=== PATIENT | female | born 1995 | race Hispanic/Latino ===

== ENCOUNTER 2020-07-09 00:13 | Emergency (ER) | payer MEDICARE ==
[2020-07-09 01:15] VITALS: BP 108/63
[2020-07-09] MEDS ORDERED: ONDANSETRON 4 MG/2 ML INJ IV ONE (02:33)
[2020-07-09] MEDS ORDERED: KETOROLAC 30 MG/1 ML INJ IV ONE (02:33)
[2020-07-09] MEDS ORDERED: dexAMETHasone 20 MG/5 ML VIAL IV ONE (02:33)
[2020-07-09 03:44] LABS: Alanine Aminotransferase 10 units/L (7-56); Albumin 4.6 g/dL (3.9-5); BUN/Creatinine Ratio 16; Blood Urea Nitrogen 13 mg/dL (7-17); Calcium 9.6 mg/dL (8.4-10.2); Hemolysis Index 11
[2020-07-09] MEDS ORDERED: cefTRIAXone/NS 1 GM/50 ML 1 GM/50 ML BAG IV ONE (03:56)
[2020-07-09 04:02] LABS: Basophils # (Auto) 0.1 K/mm3 (0.0-0.1); Basophils % (Auto) 0.6 % (0.0-1.8); Eosinophils # (Auto) 1.1 K/mm3 (0.0-0.4); Eosinophils % (Auto) 12.5 % (0.0-4.3); Hematocrit 43.5 % (30.3-42.9); Hemoglobin 15.1 gm/dl (10.1-14.3); Mean Corpuscular HGB Conc 35 % (30-34); Mean Corpuscular Volume 96 fl (79-97); Monocytes # (Auto) 0.4 K/mm3 (0.0-0.8); Monocytes % (Auto) 4.8 % (0.0-7.3); Platelet Count 295 K/mm3 (140-440); Red Blood Count 4.54 M/mm3 (3.65-5.03); Red Cell Distribution Width 12.9 % (13.2-15.2)
--- NOTE | 2020-07-09 05:16 | Cat Scan Report ---
CT neck w con INDICATION / CLINICAL INFORMATION: 25 years Female; neck mass; pain; dysphonia and dysphagia. TECHNIQUE: Contiguous thin cut axial images obtained through the neck following IV contrast. Sagittal and cunningham l reconstructions performed by the technologist. All CT scans at this location are performed using CT dose reduction for ALARA by means of automated exposure control. COMPARISON: None available. FINDINGS: MUCOSAL SPACE: There is prominence of the base of tongue soft tissues with effacement of the vallecul a. The findings are nonspecific though may reflect lymphoid hypertrophy. There is no significant narr owing of the airway. No definitive fluid collections are seen involving the soft tissues of the neck. The epiglottis appears appropriate in size. The laryngeal structures are fairly symmetric. LYMPH NODES: There are a few scattered cervical lymph nodes which measure less than 1 cm transversely and are most likely reactive. SALIVARY GLANDS: The parotid and submandibular glands demonstrate fairly symmetric attenuation withou t focal calcification. THYROID GLAND: The thyroid gland is appropriate in size and contour. PARANASAL SINUSES: Visualized paranasal sinuses and mastoid air cells are essentially clear. SPINE: There is anterior cervical fusion at C5-6. There is moderate anterior ossific information at C 6-7. VASCULAR STRUCTURES: Vascular structures are grossly normal in appearance. Surrounding soft tissues are otherwise grossly normal. IMPRESSION: 1. There is prominence of the base of tongue soft tissues with effacement of the vallecula which is n onspecific though may reflect lymphoid hypertrophy. 2. No fluid collections or significant focal inflammatory changes are seen involving the soft tissues of the neck. Signer Name: Kevin Davis MD Signed: 07/09/2020 5:12 AM Workstation Name: [id number]
--- NOTE | 2020-07-09 06:13 | Emergency Department Report ---
ED General Adult HPI - General Chief complaint: Dental/Oral Stated complaint: DIFF SWALLOWING Source: patient Mode of arrival: Stretcher Limitations: No Limitations - History of Present Illness Initial comments: Patient is a 25-year-old white female with a history of hyperthyroidism, fibromyalgia, degenerative joint disease, sciatica, bipolar disorder, anxiety and depression and asthma who presents to the ED with acute onset persistent severe sore throat with dysphagia and dysphonia and a feeling of throat tightness in the neck pain for the last 3 days. Patient states that she has also been having persistent bilateral ear pain and suspects that the ear infection that he was diagnosed with in December 2019 and for which she took oral amoxicillin never resolved. Patient states that the pain in her neck is mainly anterior around her thyroid. Patient denies fever, chills, nausea, vomiting, cough, nasal and sinus congestion, abdominal pain, chest pain, shortness of breath, decreased appetite, nausea and vomiting, diarrhea, hearing loss or change in vision and syncope. MD Complaint: Sore throat; dysphonia; dysphagia; Bilateral ear pain and neck pain -: Sudden, days(s) (3) Location: face, mouth, neck Radiation: neck Severity scale (0 -10): 6 Quality: aching, sharp Consistency: constant Improves with: none Worsens with: eating Associated Symptoms: denies other symptoms. denies: confusion, chest pain, cough, diaphoresis, fever/chills, headaches, loss of appetite, malaise, nausea/vomiting, rash, seizure, shortness of breath, syncope, weakness Treatments Prior to Arrival: none - Related Data Previous Rx's Medication Instructions Recorded Last Taken Type Clindamycin [Clindamycin CAP] 300 mg PO Q6HR #80 capsule 07/09/20 Unknown Rx Ibuprofen [Motrin] 800 mg PO Q8HR PRN #30 tablet 07/09/20 Unknown Rx Ondansetron [Zofran Odt] 4 mg PO Q6HR PRN #15 tab.rapdis 07/09/20 Unknown Rx predniSONE [Deltasone] 40 mg PO QDAY #10 tab 07/09/20 Unknown Rx Allergies Allergy/AdvReac Type Severity Reaction Status Date / Time No Known Allergies Allergy Unverified 07/09/20 04:10 ED Review of Systems ROS: Stated complaint: DIFF SWALLOWING Other details as noted in HPI Constitutional: denies: chills, fever Eyes: denies: eye pain, eye discharge, vision change ENT: ear pain (Bilateral ear pain), throat pain, other (Dysphagia and dysphonia) Respiratory: denies: cough, shortness of breath, wheezing Cardiovascular: denies: chest pain, palpitations Endocrine: no symptoms reported Gastrointestinal: denies: abdominal pain, nausea, diarrhea Genitourinary: denies: urgency, dysuria, discharge Musculoskeletal: denies: back pain, joint swelling, arthralgia Skin: denies: rash, lesions Neurological: denies: headache, weakness, paresthesias Psychiatric: denies: anxiety, depression Hematological/Lymphatic: denies: easy bleeding, easy bruising ED Past Medical Hx - Past Medical History Previous Medical History?: Yes Hx Psychiatric Treatment: Yes (Bipolar, Major depression) Hx Asthma: Yes Additional medical history: Fibromyalgia, DJD, Scoliosis, Sciatica - Surgical History Past Surgical History?: Yes Additional Surgical History: Cervical fusion, Labiaplasty, - Social History Smoking Status: Current Every Day Smoker Substance Use Type: None - Medications Home Medications: Home Medications Medication Instructions Recorded Confirmed Last Taken Type Clindamycin [Clindamycin CAP] 300 mg PO Q6HR #80 capsule 07/09/20 Unknown Rx Ibuprofen [Motrin] 800 mg PO Q8HR PRN #30 tablet 07/09/20 Unknown Rx Ondansetron [Zofran Odt] 4 mg PO Q6HR PRN #15 tab.rapdis 07/09/20 Unknown Rx predniSONE [Deltasone] 40 mg PO QDAY #10 tab 07/09/20 Unknown Rx ED Physical Exam - General Limitations: No Limitations General appearance: alert, in no apparent distress - Head Head exam: Present: atraumatic, normocephalic, normal inspection - Eye Eye exam: Present: normal appearance, PERRL, EOMI Pupils: Present: normal accommodation - ENT ENT exam: Present: mucous membranes moist, other (Mildly erythematous oropharynx; bilateral erythematous and bulging tympanic membranes with effusion) - Neck Neck exam: Present: normal inspection, tenderness, lymphadenopathy (Palpable bilateral anterior cervical lymphadenopathy) - Respiratory Respiratory exam: Present: normal lung sounds bilaterally. Absent: respiratory distress, wheezes, rales, rhonchi, chest wall tenderness, accessory muscle use, prolonged expiratory - Cardiovascular Cardiovascular Exam: Present: regular rate, normal rhythm, normal heart sounds. Absent: systolic murmur, diastolic murmur, rubs, gallop - GI/Abdominal GI/Abdominal exam: Present: soft, normal bowel sounds. Absent: tenderness, guarding, rebound, hyperactive bowel sounds, hypoactive bowel sounds - Extremities Exam Extremities exam: Present: normal inspection, full ROM, normal capillary refill - Back Exam Back exam: Present: normal inspection, full ROM. Absent: tenderness, CVA tenderness (R), CVA tenderness (L), muscle spasm, paraspinal tenderness, vertebral tenderness - Neurological Exam Neurological exam: Present: alert, oriented X3, CN II-XII intact, normal gait, reflexes normal - Psychiatric Psychiatric exam: Present: normal affect, normal mood - Skin Skin exam: Present: warm, dry, intact, normal color. Absent: rash ED Course Vital Signs 07/09/20 01:13 Temperature 98.8 F Pulse Rate 69 Respiratory 16 Rate Blood Pressure 108/63 O2 Sat by Pulse 99 Oximetry ED Medical Decision Making - Lab Data Result diagrams: 07/09/20 03:00 07/09/20 03:00 - Radiology Data Radiology results: report reviewed, image reviewed Findings [address] [address] Cat Scan Report Signed Patient: HEIDI MCFARLANE MR#: [id number] : 1995 Acct:[id number] Age/Sex: 25 / F ADM Date: 07/09/20 Loc: ED Attending Dr: Ordering Physician: LANE BONE Date of Service: 07/09/20 Procedure(s): CT neck w con Accession Number(s): [id number] cc: LANE BONE CT neck w con INDICATION / CLINICAL INFORMATION: 25 years Female; neck mass; pain; dysphonia and dysphagia. TECHNIQUE: Contiguous thin cut axial images obtained through the neck following IV contrast. Sagittal and coronal reconstructions performed by the technologist. All CT scans at this location are performed using CT dose reduction for ALARA by means of automated exposure control. COMPARISON: None available. FINDINGS: MUCOSAL SPACE: There is prominence of the base of tongue soft tissues with effacement of the vallecula. The findings are nonspecific though may reflect lymphoid hypertrophy. There is no significant narrowing of the airway. No definitive fluid collections are seen involving the soft tissues of the neck. The epiglottis appears appropriate in size. The laryngeal structures are fairly symmetric. LYMPH NODES: There are a few scattered cervical lymph nodes which measure less than 1 cm transversely and are most likely reactive. SALIVARY GLANDS: The parotid and submandibular glands demonstrate fairly symmetric attenuation without focal calcification. THYROID GLAND: The thyroid gland is appropriate in size and contour. PARANASAL SINUSES: Visualized paranasal sinuses and mastoid air cells are essentially clear. SPINE: There is anterior cervical fusion at C5-6. There is moderate anterior ossific information at C6-7. VASCULAR STRUCTURES: Vascular structures are grossly normal in appearance. Surrounding soft tissues are otherwise grossly normal. IMPRESSION: 1. There is prominence of the base of tongue soft tissues with effacement of the vallecula which is nonspecific though may reflect lymphoid hypertrophy. 2. No fluid collections or significant focal inflammatory changes are seen involving the soft tissues of the neck. Signer Name: Kevin Davis MD Signed: 07/09/2020 5:12 AM Workstation Name: [id number] Transcribed By: MR Dictated By: Kevin Davis MD Electronically Authenticated By: Kevin Davis MD Signed Date/Time: 07/09/20511 DD/ 0 TD/TT: - Medical Decision Making This is a 25-year-old white female with a history of hyperthyroidism, fibromyalgia, degenerative joint disease, sciatica, bipolar disorder, anxiety and depression and asthma who presents to the ED with acute onset persistent severe sore throat with dysphagia and dysphonia and a feeling of throat tightness in the neck pain for the last 3 days. Patient states that she has also been having persistent bilateral ear pain and suspects that the ear infect ion that he was diagnosed with in December 2019 and for which she took oral amoxicillin never resolved. Patient states that the pain in her neck is mainly anterior around her thyroid. In the ED, patient is alert and oriented x3 and is not in distress but appears to be uncomfortable and anxious. Lab test results were reviewed and are all nonactionable except for elevated TSH level of 4.450. The patient was treated for pain in the ED, and also treated with Decadron and Rocephin 1 g IV based on the physical exam findings. Neck CT scan with contrast showed a prominence of the base of tongue soft tissues with effacement of the vallecula which is nonspecific though may reflect lymphoid hypertrophy. There are however no fluid collections or significant focal inflammatory changes are seen involving the soft tissues of the neck. On reevaluation, patient pain is well controlled with medications. Patient was discharged home on oral antibiotics and pain medications as well as steroids. Patient was advised to follow-up with her primary care physician in 5 to 7 days for reevaluation or return to the ED immediately if symptoms get worse. - Differential Diagnosis Strep pharyngitis; tonsillitis; laryngitis; otitis media; lymphadenopathy Critical care attestation.: If time is entered above; I have spent that time in minutes in the direct care of this critically ill patient, excluding procedure time. 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 Return to the ED i mmediately if symptoms get worse. Prescriptions: Clindamycin [Clindamycin CAP] 300 mg PO Q6HR #80 capsule predniSONE [Deltasone] 40 mg PO QDAY #10 tab Ibuprofen [Motrin] 800 mg PO Q8HR PRN #30 tablet PRN Reason: Pain , Severe (7-10) Ondansetron [Zofran Odt] 4 mg PO Q6HR PRN #15 tab.rapdis PRN Reason: Nausea Referrals: [facility] [Provider Group] - 3-5 Days ARNOLD ZAPIEN MD [Staff Physician] - 3-5 Days Time of Disposition: 06:21 Print Language: BELARUSIAN
== END 2020-07-09 06:50 | disposition home or self-care (01) ==
LOC: ED 00:13
DX: J04.0 Acute laryngitis (principal); H66.93 Otitis media, unspecified, bilateral; R59.0 Localized enlarged lymph nodes; E03.9 Hypothyroidism, unspecified; F31.9 Bipolar disorder, unspecified; J45.909 Unspecified asthma, uncomplicated; F17.200 Nicotine dependence, unspecified, uncomplicated; Z98.890 Other specified postprocedural states; Z79.1 Long term (current) use of non-steroidal anti-inflammatories (NSAID); Z79.2 Long term (current) use of antibiotics; Z79.899 Other long term (current) drug therapy
CPT/HCPCS: 36415; 70491; 80053; 84436; 84443; 84481; 84703; 85025; 96365; 96375; 99284; J0696; J1100; J1885; J2405; Q9967